=== PATIENT | male | born 1980 | race Caucasian/White ===

== ENCOUNTER 2017-12-07 22:33 | Emergency (ER) | payer OTHER ==
[2017-12-07] MEDS ORDERED: Sodium Chloride 0.9% 1,000 ML IV ONE (22:55)
[2017-12-07] MEDS ORDERED: Multivitamin Inj 10 ML, Thiamine HCL 100 MG, Magnesium Sulfate 2 GM, Folic Acid 1 MG in... IV ONE (22:57)
--- NOTE | 2017-12-07 23:04 | ED Physician Chart ---
ED Chief Complaint/HPI - Patient Information Date Seen:: 12/07/17 Time Seen:: 22:58 Chief Complaint:: etoh History of Present Illness:: 37 yr old male with hx of etoh daily and states he loves to drink pt awake alert answering questions very strong odor refusng care bib by paramedics was in in the rest room in a store he says they were worried about him and wanted him checked out Allergies:: Allergies Allergy/AdvReac Type Severity Reaction Status Date / Time Penicillins Allergy Verified 12/07/17 22:38 Vitals:: Vital Signs - 8 hr 12/07/17 22:35 Temp 98.4 F HR 98 RR 18 BP 124/80 O2 Sat % 98 ED Review of Systems - Review of Systems General/Constitutional: No fever, Other (slurred speach strong etoh odor) Skin: No skin lesions, No rash, No bruising Head: No headache, No light-headedness Eyes: No loss of vision, No pain, No diplopia ENT: No earache, No nasal drainage, No sore throat, No tinnitus Neck: No neck pain, No swelling, No thyromegaly, No stiffness, No mass noted Cardio Vascular: No chest pain, No palpitations, No PND, No orthopnea, No edema Pulmonary: No SOB, No cough, No sputum, No wheezing GI: No nausea, No vomiting, No diarrhea, No pain, No melena, No hematochezia, No constipation, No hematemesis G/U: No dysuria, No frequency, No hematuria Musculoskeletal: No bone or joint pain, No back pain, No muscle pain Endocrine: No polyuria, No polydipsia Psychiatric: No prior psych history, No depression, No anxiety, No suicidal ideation Hematopoietic: No bruising, No lymphadenopathy Allergic/Immuno: No urticaria, No angioedema Neurological: No syncope, No focal symptoms, No weakness, No paresthesia, No headache, No seizure, No dizziness, No confusion, No vertigo ED Past Medical History - Past Medical History Past Medical History: No significant medical hx, Other (etoh abuse) Social History: Alcohol, No Drug Use Family Medical History - Family Member Mother Living Status: Still Living ED Physical Exam - Physical Examination General/Constitutional: Alert Head: Atraumatic Eyes: Lids, conjuctiva normal, PERRL, EOMI Skin: Nl inspection, No rash, No skin lesions, No ecchymosis, Well hydrated, No lymphadenopathy ENMT: External ears, nose nl, Nasal exam nl, Lips, teeth, gums nl Neck: Nontender, Full ROM w/o pain, No JVD, No nuchal rigidity, No bruit, No mass, No stridor Respiratory: Nl effort/Exclusion, Clear to Auscultation, No Wheeze/Rhonchi/Rales Cardio Vascular: RRR, No murmur, gallop, rubs, NL S1 S2 GI: No tenderness/rebounding/guarding, No organomegaly, No hernia, Normal BS's, Nondistended, No mass/bruits, No McBurney tenderness : No CVA tenderness Extremities: No tenderness or effusion, Full ROM, normal strength in all extremities, No edema, Normal digits & nails Neuro/Psych: Alert/oriented, DTR's symmetric, Normal sensory exam, Normal motor strength, Judgement/insight normal, Mood normal, Normal gait, No focal deficits Misc: Normal back, No paraspinal tenderness ED Assessment - Assessment General Assessment: etoh abuse ED Septic Shock - . Is Septic Shock (SBP<90, OR Lactate>4 mmol\L) present?: No - <6hrs of presentation: Vital Signs: Vital Signs - 8 hr 12/07/17 22:35 Temp 98.4 F HR 98 RR 18 BP 124/80 O2 Sat % 98 ED Reassessment (Disposition) - Diagnosis Diagnosis:: etoh abuse and encepalopathy refusing to stay or be treated - Aftercare/Follow up Instructions Aftercare/Follow-Up Instructions:: Counseled pt regarding lab results/diagnosis & need follow up - Patient Disposition Discharge/Transfer:: Against Medical Advice
== END 2017-12-07 23:20 | disposition left against medical advice (07) ==
LOC: ER 22:33
DX: F10.10 Alcohol abuse, uncomplicated (principal); G93.40 Encephalopathy, unspecified; R47.81 Slurred speech; Z88.0 Allergy status to penicillin
CPT/HCPCS: 99283; J3411; J3475; J7030; X6598; Z7502